=== PATIENT | female | born 1950 | race Caucasian/White ===

== ENCOUNTER 2023-02-01 11:19 | Day surgery (SDC) | payer MEDICARE, BC ==
[~2023-02-01 11:19] MED LIST: Cefuroxime 10 MG/ML SYRINGE EYELF SCH; Lidocaine 1% PF 2 ML SDV INJECT SCH; Pilocarpine 4% Ophth Soln 15 ML Bot EYELF SCH
[2023-02-01] MEDS: Polymyxin B/Trimethoprim 10 ML Bottle EYELF SCH ×3 (11:33→13:28)
[2023-02-01] MEDS: Phenylephrine 2.5% Ophth Soln 2 ML Bot EYELF SCH ×6 (11:36→13:09)
[2023-02-01] MEDS: Brimonidine 0.2% Ophth Soln 5 ML Bottle EYELF SCH ×3 (11:38→13:28)
[2023-02-01] MEDS: Tropicamide 1% Ophth Soln 15 ML Bottle EYELF SCH ×4 (11:49→12:18)
[2023-02-01] MEDS ORDERED: Ondansetron 4 MG/2 ML SDV IVPUSH PRN (11:51)
[2023-02-01] MEDS: Tetracaine HCl/PF 0.5% 4 ML Bottle EYEBOTH SCH ×4 (12:22→13:17)
== END 2023-02-01 13:38 | disposition home or self-care (01) ==
LOC: JD.SDS 11:19
PROVIDERS: ATTEND Ophthalmology
DX: H25.813 Combined forms of age-related cataract, bilateral (principal); H16.103 Unspecified superficial keratitis, bilateral; H16.223 Keratoconjunctivitis sicca, not specified as Sjogren's, bilateral; H02.831 Dermatochalasis of right upper eyelid; H02.834 Dermatochalasis of left upper eyelid; H52.209 Unspecified astigmatism, unspecified eye; E78.00 Pure hypercholesterolemia, unspecified; Z90.710 Acquired absence of both cervix and uterus; Z96.652 Presence of left artificial knee joint; Z88.8 Allergy status to other drugs, medicaments and biological substances; Z79.899 Other long term (current) drug therapy; Z88.5 Allergy status to narcotic agent
CPT/HCPCS: 66984; A9270; J0697; V2788; J3490

== ENCOUNTER 2023-03-08 09:59 | Day surgery (SDC) | payer MEDICARE, BC ==
[2023-03-08] MEDS: Polymyxin B/Trimethoprim 10 ML Bottle EYERT SCH ×4 (10:43→12:32)
[2023-03-08] MEDS: Brimonidine 0.2% Ophth Soln 5 ML Bottle EYERT SCH ×4 (10:49→12:32)
[2023-03-08] MEDS: Phenylephrine 2.5% Opth Drops 10 mL EYERT SCH ×6 (10:53→12:13)
[2023-03-08] MEDS ORDERED: Ondansetron 4 MG/2 ML SDV IVPUSH PRN (10:57)
[2023-03-08] MEDS: Tropicamide 1% Ophth Soln 15 ML Bottle EYERT SCH ×3 (10:58→11:44)
[2023-03-08] MEDS: Tetracaine HCl/PF 0.5% 4 ML Bottle EYEBOTH SCH ×6 (11:29→12:21)
[2023-03-08] MEDS: Cefuroxime 10 MG/ML SYRINGE EYERT SCH ×2 (11:42→12:31)
[2023-03-08] MEDS: Lidocaine 1% PF 2 ML SDV INJECT SCH ×2 (11:42→12:22)
[2023-03-08] MEDS: Pilocarpine 4% Ophth Soln 15 ML Bot EYERT SCH ×2 (11:44→12:32)
== END 2023-03-08 12:46 | disposition home or self-care (01) ==
LOC: JD.SDS 09:59
PROVIDERS: ATTEND Ophthalmology
DX: H25.811 Combined forms of age-related cataract, right eye (principal); E78.00 Pure hypercholesterolemia, unspecified; M19.90 Unspecified osteoarthritis, unspecified site; Z88.8 Allergy status to other drugs, medicaments and biological substances; Z88.6 Allergy status to analgesic agent; Z98.890 Other specified postprocedural states; Z79.899 Other long term (current) drug therapy
CPT/HCPCS: 66984; A9270; J0697; V2788; J3490

== ENCOUNTER 2023-11-13 06:42 | Emergency (ER) | payer MEDICARE, BC ==
[2023-11-13 07:03] LABS: BASOPHILS ABSOLUTE AUTO 0.1 K/mm3 (0.0-0.2); BASOPHILS PERCENT AUTO 0.6 % (0.0-1.0); EOSINOPHILS ABSOLUTE AUTO 0.4 K/mm3 (0.0-0.4); EOSINOPHILS PERCENT AUTO 3.4 % (0.0-6.0); HEMATOCRIT 45.1 % (37.0-47.0); HEMOGLOBIN 15.3 gm/dl (12.0-16.0); IMMATURE GRAN ABSOLUTE AUTO 0.03 K/mm3 (0.00-0.05); IMMATURE GRAN PERCENT AUTO 0.3 % (0.0-0.4); LYMPHOCYTES ABSOLUTE AUTO 1.7 K/mm3 (1.0-4.8); LYMPHOCYTES PERCENT AUTO 15.3 % (24.0-44.0); MEAN CORPUSCULAR HGB CONC 33.9 g/dl (32.0-36.0); MEAN CORPUSCULAR VOLUME 91.5 fl (83.0-99.0); MEAN PLATELET VOLUME 10.1 fl (9.4-12.3); MONOCYTES ABSOLUTE AUTO 0.7 K/mm3 (0.0-0.8); MONOCYTES PERCENT AUTO 6.7 % (0.0-8.0); NEUTROPHILS PERCENT AUTO 73.7 % (41.0-71.0); PLATELET COUNT,PLT 254 K/mm3 (150-400); RED BLOOD CELL COUNT 4.93 M/mm3 (4.10-5.30); WHITE BLOOD CELL COUNT,WBC 10.86 K/mm3 (3.9-11.3)
[2023-11-13 07:29] LABS: ALANINE AMINOTRANSFERASE,ALT 46 U/L (14-59); ALBUMIN 3.7 g/dl (3.4-5.0); ALKALINE PHOSPHATASE 74 U/L (46-116); ANION GAP 13.7 (5-15); ASPARTATE AMNIOTRANSFERASE,AST 31 U/L (15-37); BLOOD UREA NITROGEN,BUN 24 mg/dL (7-18); CALCIUM 8.9 mg/dL (8.5-10.1); CARBON DIOXIDE,CO2 26 mEq/L (21-32); CHLORIDE,CL 107 mEq/L (98-107); EST CRCL DRUG DOSING (CG) 34.91 mL/min; ESTIMATED GFR 59 mL/min (>60); GLUCOSE RANDOM 155 mg/dL (70-99); POTASSIUM,K 3.7 mEq/L (3.5-5.1); PROTEIN TOTAL,TP 7.4 g/dl (6.4-8.2); SODIUM,NA 143 mEq/L (136-145)
[2023-11-13 07:30] LABS: TROPONIN I HIGH SENSITIVITY < 4 pg/mL (<=51)
[2023-11-13] MEDS: Sodium Chloride 0.9% 1,000 ML IV ONE (07:32)
[2023-11-13] MEDS: Ondansetron 4 MG/2 ML SDV IVPUSH ONE (07:32)
[2023-11-13] MEDS: Acetaminophen 325 MG Tab PO ONE (10:40)
== END 2023-11-13 10:30 | disposition home or self-care (01) ==
LOC: JD.ED 06:42
DX: R55 Syncope and collapse (principal); E78.00 Pure hypercholesterolemia, unspecified; Z90.710 Acquired absence of both cervix and uterus; E78.5 Hyperlipidemia, unspecified; Z79.899 Other long term (current) drug therapy; Z88.8 Allergy status to other drugs, medicaments and biological substances
CPT/HCPCS: 36415; 70450; 72125; 80053; 84484; 85025; 93005; 96361; 96374; 99285; J2405; J7030